=== PATIENT | male | born 1970 ===

== ENCOUNTER 2024-09-05 01:58 | Emergency (ER) | payer OTHER, SELFPAY ==
--- NOTE | 2024-09-05 | ECG_ITS ---
Test Reason : epi gastric Blood Pressure : / mmHG Vent. Rate : 079 BPM Atrial Rate : 079 BPM P-R Int : 160 ms QRS Dur : 102 ms QT Int : 386 ms P-R-T Axes : 049 -37 011 degrees QTc Int : 442 ms Normal sinus rhythm Left axis deviation Moderate voltage criteria for LVH, may be normal variant ( R in aVL , Dorr product ) Abnormal ECG No previous ECGs available Referred By: Polo Bailey Electronically Signed By:Eric Saavedra
--- NOTE | ~2024-09-05 | CT_ITS ---
EXAMINATION: CT ABDOMEN AND PELVIS WITHOUT CONTRAST CLINICAL INFORMATION: Abdominal pain. COMPARISON: None available. TECHNIQUE: Multidetector volumetric imaging was performed from the superior aspect of the liver through the pubic symphysis. Sagittal and coronal reformatted images were obtained on the technologist's workstation. This CT examination was performed using dose optimization techniques as appropriate, variously including the following: *Automated exposure control *Adjustment of mA and/or kV according to patient size (this includes techniques or standardized protocols for targeted exams where dose is matched to indication/reason for exam; i.e. extremities or head) *Use of iterative reconstruction technique DLP: 713 mGy-cm FINDINGS: LUNG BASES: Minimal interstitial coarsening/scarring at the lung bases. LIVER, GALLBLADDER, AND BILIARY TREE: The liver is irregular in contour. No focal liver lesions are seen. There is no intrahepatic biliary duct dilatation. The gallbladder is unremarkable with no evidence of radiopaque gallstones, gallbladder wall thickening, or obvious pericholecystic inflammatory changes. PANCREAS: Unremarkable. SPLEEN: Unremarkable. ADRENAL GLANDS: Unremarkable. KIDNEYS AND URETERS: The kidneys are normal in size, shape, and attenuation. No hydronephrosis, hydroureter, or calculi seen. No perinephric stranding. There is a 1.8 cm low-density structure mid pole left likely small cyst. BLADDER: Unremarkable. GASTROINTESTINAL TRACT: There is retained stool throughout the colon. There are diverticula of the sigmoid colon without evidence for diverticulitis. There are prominent fluid-filled mid to distal distal small bowel loops. The appendix is visualized and is within normal limits. ABDOMINAL WALL: No significant hernia is appreciated. LYMPH NODES: Normal. VASCULAR: There is atherosclerotic plaque of the abdominal aorta and proximal branches. There is recanalization of umbilical vein. PELVIC VISCERA: Unremarkable. OSSEOUS STRUCTURES: Unremarkable. CT/CT abdomen pelvis wo IV con IMPRESSION: 1. Prominent fluid-filled mid to distal small bowel loops. This may be seen with a mild enteritis. 2. Diverticulosis without evidence of diverticulitis. 3. Cirrhotic appearance of the liver. Recanalization of the umbilical vein. 4. Atherosclerotic plaque of the abdominal aorta and proximal branches. 5. 1.8 cm low-density structure mid pole left kidney likely small cyst. Fleischner guidelines were followed. Electronically signed by: Twin Christian MD 09/05/2024 05:29 AM EST [facility]
[2024-09-05 02:06] VITALS: BP 146/90; PULSE 76; O2SAT 97
[2024-09-05 02:17] VITALS: BP 158/84; PULSE 75; RESP 16; TEMP 36.6; O2SAT 95
--- NOTE | 2024-09-05 02:37 | ED.ABDPAIN ---
HPI - Abdominal Pain General Chief Complaint: Abdominal Pain Stated Complaint: Upper ABD Pain Time Seen by Provider: 09/05/24 02:10 Source: patient Mode of arrival: EMS Limitations: no limitations History of Present Illness ED Provider: baltazar ENRIQUE narrative: Patient's history of alcohol use with chronic liver disease came from [facility] for lower abdominal pain with nausea vomiting no bleeding no history of diverticulitis had a bowel movement prior to arrival Related Data Previous Rx's ?Medication ?Instructions ?Recorded ondansetron 4 mg disintegrating 4 mg PO Q6-8H PRN nausea and 09/05/24 tablet vomiting #7 tabs Allergies Allergy/AdvReac Type Severity Reaction Status Date / Time No Known Allergies Allergy Verified 09/05/24 02:31 Review of Systems Review of Systems Yes all other systems are reviewed and are negative [facility] Social History Social History Alcohol intake: current Alcohol intake frequency: a few times a week Alcohol type: beer and hard liquor Smoked in Last 30 Days: No Use of substances other than those prescribed or required for medical reasons: No Physical Exam ED Vital Signs: Vital Signs - 24 hr 09/05/24 02:17 09/05/24 04:11 09/05/24 06:01 Temperature 97.8 F 98.4 F 98.0 F Pulse Rate 75 76 77 Respiratory Rate 16 16 16 Blood Pressure 158/84 H 140/60 H 130/64 Pulse Oximetry 95 97 97 Oxygen Delivery Method Room Air Room Air Room Air BMI result Body Mass Index 30.0 Appearance: Alert. Oriented X3. No acute distress. Eyes: No pallor or icterus ENT: Pharynx normal. Oral Mucosa moist Neck: Normal inspection. Neck supple. CVS: Normal heart rate and rhythm. Pulses normal. Respiratory: No respiratory distress. Equal air entry bilateral, no wheezing/rales/rhonchi Abdomen: Soft and diffuse tenderness lower abdomen no rebound tenderness Bowel sounds are present, no mass palpable, no CVA tenderness Skin: Skin warm and dry. Normal skin color. Normal skin turgor. Extremities: No lower extremity edema. No calf tenderness Neuro: Oriented X 3. No motor deficit. No sensory deficit.No cerebellar signs , cranial nerves II-XII intact Medical Decision Making Medical Decision Making [facility] Narrative: Patient had 1 loose bowel in the ER feeling much better now CT scan negative for acute likely gastroenteritis [facility] is taking p.o. fluids in the ER feeling much better discharge patient Differential Diagnosis Differential Diagnoses: The differential diagnosis associated with the presentation includes Enteritis/SBO/diverticulitis Lab Data MDM Lab Attestation statement: I reviewed the patient's lab results. 09/05/24 02:47 09/05/24 02:47 Labs: Lab Results 09/05/24 09/05/24 Range/Units 02:47 05:36 WBC 6.5 (4.8-10.8) X10*3/uL RBC 3.98 L (4.60-5.80) X10*6/uL Hgb 13.0 L (14.0-18.0) g/dl Hct 37.8 L (42.0-52.0) % MCV 95.0 (80.0-98.0) fL MCH 32.7 (27.0-33.0) pg MCHC 34.4 (31.0-36.0) g/dl RDW 15.1 (11.0-16.0) % Plt Count 140 L (160-400) X10*3/uL MPV 9.8 (9.4-12.4) fL Immature Gran % (Auto) 0.3 (0.0-0.4) % Neut % (Auto) 57.8 (45-73) % Lymph % (Auto) 19.5 L (20-40) % [place] % (Auto) 18.7 H (2-11) % Eos % (Auto) 2.0 (0-4) % Baso % (Auto) 1.7 (0-2) % Lymph # (Auto) 1.3 (1.2-4.9) X10*3/uL [place] # (Auto) 1.2 (0.1-1.2) X10*3/uL Eos # (Auto) 0.1 (0.0-0.4) X10*3/uL Baso # (Auto) 0.1 (0.0-0.2) X10*3/uL Abs Immat Gran (auto) 0.02 (0.00-0.03) X10*3/uL Absolute Neuts (auto) 3.8 (2.0-8.3) x10*3/uL Absolute Nucleated RBC 0.000 (0.0-0.012) X10*3/uL Nucleated RBC % (auto) 0.0 (0.0-0.2) /100WBC PT 13.0 H (10.9-12.4) SEC INR 1.1 (0.9-1.1) Sodium 140 (135-145) mmol/L Potassium 4.0 (3.3-5.1) mmol/L Chloride 102 (96-108) mmol/L Carbon Dioxide 26 (22-29) mmol/L Anion Gap 16 (12-20) BUN 14 (9-16) mg/dL Creatinine 0.84 (0.5-1.4) mg/dL Estim Creat Clear Calc 97.8 Estimated GFR > 60 Random Glucose 142 H (60-115) mg/dL Calcium 10.0 (8.4-10.2) mg/dL Magnesium 1.7 (1.6-2.6) mg/dL Total Bilirubin 0.7 (0.0-1.0) mg/dL AST 53 H (5-37) U/L ALT 55 H (0-40) U/L Alkaline Phosphatase 88 (39-117) U/L Total Protein 7.6 (6.5-8.0) g/dL Albumin 4.3 (3.5-5.0) g/dL Lipase 111 H (8-78) U/L Urine Color Yellow Urine Appearance Clear Urine pH 6.5 (5.0-9.0) Ur Specific [place] 1.020 (1.005-1.025) Urine Protein Negative (Neg-Trace) mg/dL Urine Glucose (UA) Negative (Negative) mg/dL Urine Ketones Trace (Negative) mg/dL Urine Blood Negative (Negative) Urine Nitrite Negative (Negative) Ur Leukocyte Esterase Trace H (Negative) Urine RBC 0-2 (0-2) /HPF Urine WBC 0-5 (0-5) /HPF Ur Squamous Epith Cells 0-2 (0-2) /HPF Urine Bacteria None Seen (None Seen) Hyaline Casts 0-2 (0-2) /LPF Ethyl Alcohol < 10 mg/dL Independent Interpretation I performed an independent interpretation of an: CT Scan Radiology Impression Discussion of test interpretation with radiology: I have reviewed the radiologist's reading. Radiologist Impression: [address] [address] [address] Scan Report Signed Patient: Dc Warner MR#: [id number] : 1970 Acct:[id number] Age/Sex: 54 / M ADM Date: 09/05/24 Loc: HO.ED Attending Dr: Ordering Physician: Polo Bailey MD Date of Service: 09/05/24 Procedure(s): CT abdomen pelvis wo IV con Accession Number(s): [id number] cc: Jay Roland; Polo Bailey MD~ EXAMINATION: CT ABDOMEN AND PELVIS WITHOUT CONTRAST CLINICAL INFORMATION: Abdominal pain. COMPARISON: None available. TECHNIQUE: Multidetector volumetric imaging was performed from the superior aspect of the liver through the pubic symphysis. Sagittal and coronal reformatted images were obtained on the technologist's workstation. This CT examination was performed using dose optimization techniques as appropriate, variously including the following: *Automated exposure control *Adjustment of mA and/or kV according to patient size (this includes techniques or standardized protocols for targeted exams where dose is matched to indication/reason for exam; i.e. extremities or head) *Use of iterative reconstruction technique DLP: 713 mGy-cm FINDINGS: LUNG BASES: Minimal interstitial coarsening/scarring at the lung bases. LIVER, GALLBLADDER, AND BILIARY TREE: The liver is irregular in contour. No focal liver lesions are seen. There is no intrahepatic biliary duct dilatation. The gallbladder is unremarkable with no evidence of radiopaque gallstones, gallbladder wall thickening, or obvious pericholecystic inflammatory changes. PANCREAS: Unremarkable. SPLEEN: Unremarkable. ADRENAL GLANDS: Unremarkable. KIDNEYS AND URETERS: The kidneys are normal in size, shape, and attenuation. No hydronephrosis, hydroureter, or calculi seen. No perinephric stranding. There is a 1.8 cm low-density structure mid pole left likely small cyst. BLADDER: Unremarkable. GASTROINTESTINAL TRACT: There is retained stool throughout the colon. There are diverticula of the sigmoid colon without evidence for diverticulitis. There are prominent fluid-filled mid to distal distal small bowel loops. The appendix is visualized and is within normal limits. ABDOMINAL WALL: No significant hernia is appreciated. LYMPH NODES: Normal. VASCULAR: There is atherosclerotic plaque of the abdominal aorta and proximal branches. There is recanalization of umbilical vein. PELVIC VISCERA: Unremarkable. OSSEOUS STRUCTURES: Unremarkable. CT/CT abdomen pelvis wo IV con IMPRESSION: 1. Prominent fluid-filled mid to distal small bowel loops. This may be seen with a mild enteritis. 2. Diverticulosis without evidence of diverticulitis. 3. Cirrhotic appearance of the liver. Recanalization of the umbilical vein. 4. Atherosclerotic plaque of the abdominal aorta and proximal branches. 5. 1.8 cm low-density structure mid pole left kidney likely small cyst. Fleischner guidelines were followed. Electronically signed by: Twin Christian MD 09/05/2024 05:29 AM [facility] Medications Administered Discontinued Medications Generic Name Dose Route Start Last Admin Trade Name Freq PRN Reason Stop Dose Admin Sodium Chloride 1,000 mls @ 999 mls/hr 09/05/24 02:43 09/05/24 04:05 Ns IV 09/05/24 03:43 Infused .Q1H1M ONE Infusion Morphine Sulfate 4 mg 09/05/24 02:43 09/05/24 02:54 Morphine Sulfate 4 Mg/Ml Cartridge IVPUSH 09/05/24 02:44 4 mg ONCE ONE Administration Protocol Ondansetron HCl 4 mg 09/05/24 02:43 09/05/24 02:53 Ondansetron Hcl 4 Mg/2 Ml Vial IVPUSH 09/05/24 02:44 4 mg ONCE ONE Administration Discharge Plan Discharge Clinical Impression: Gastroenteritis Patient Disposition: Xfer [facility] Transfer Details: Patient's CT scan showed fluid in the bowels likely enteritis patient had a loose bowel in the ER feeling much better at this time Instructions: Gastroenteritis (ED) Additional Instructions: Drink plenty of fluids Medicine for nausea as prescribed Prescriptions: New ondansetron 4 mg tablet,disintegrating 4 mg PO Q6-8H PRN (Reason: nausea and vomiting) Qty: 7 0RF
[2024-09-05 02:51] LABS: MANUAL DIFF FLAG NO
[2024-09-05] MEDS: ondansetron HCL 4 MG/2 ML VIAL IVPUSH (02:53)
[2024-09-05] MEDS: Morphine Sulfate 4 MG/ML CARTRIDGE IVPUSH (02:54)
[2024-09-05 02:55] LABS: Basophils Absolute Auto 0.1 X10*3/uL (0.0-0.2); Basophils Percent Auto 1.7 % (0-2); Eosinophils Absolute Auto 0.1 X10*3/uL (0.0-0.4); Hematocrit 37.8 % (42.0-52.0); Imm Gran Abs Auto 0.02 X10*3/uL (0.00-0.03); Imm Gran Pct Auto 0.3 % (0.0-0.4); Lymphocytes Absolute Auto 1.3 X10*3/uL (1.2-4.9); Lymphocytes Percent Auto 19.5 % (20-40); Mean Corpuscular HGB Conc 34.4 g/dl (31.0-36.0); Mean Corpuscular Hemoglobin 32.7 pg (27.0-33.0); Mean Platelet Volume 9.8 fL (9.4-12.4); Monocytes Absolute Auto 1.2 X10*3/uL (0.1-1.2); Monocytes Percent Auto 18.7 % (2-11); Neutrophils Absolute Auto 3.8 x10*3/uL (2.0-8.3); Neutrophils Percent Auto 57.8 % (45-73); Platelet Count 140 X10*3/uL (160-400); Red Blood Count 3.98 X10*6/uL (4.60-5.80); Red Cell Distribution Width 15.1 % (11.0-16.0); White Blood Count 6.5 X10*3/uL (4.8-10.8)
[2024-09-05] MEDS: 0.9 % Sodium Chloride 1,000 ML 999 ML IV (02:55)
[2024-09-05 03:00] LABS: INTERNATIONAL NORM RATIO 1.1 (0.9-1.1)
[2024-09-05 03:14] LABS: Alanine Aminotransferase 55 U/L (0-40); Albumin Level 4.3 g/dL (3.5-5.0); Alkaline Phosphatase 88 U/L (39-117); Anion Gap 16 (12-20); Aspartate Amino Transferase 53 U/L (5-37); Bilirubin Total 0.7 mg/dL (0.0-1.0); Blood Urea Nitrogen 14 mg/dL (9-16); Carbon Dioxide 26 mmol/L (22-29); Chloride 102 mmol/L (96-108); Creatinine Clr Calc Pharmacy 97.8; Estimated Glomerular Filt Rate > 60; Ethanol < 10 mg/dL; Glucose Random 142 mg/dL (60-115); Lipase 111 U/L (8-78); Magnesium 1.7 mg/dL (1.6-2.6); Sodium 140 mmol/L (135-145); Total Protein 7.6 g/dL (6.5-8.0)
[2024-09-05 04:11] VITALS: BP 140/60; PULSE 76; RESP 16; TEMP 36.9; O2SAT 97
[2024-09-05 05:42] LABS: Appearance Urine Clear; Color Urine Yellow; Glucose Urine UA Negative (Negative); Leukocyte Esterase Urine Trace (Negative); Nitrite Urine Negative (Negative); PH 6.5 (5.0-9.0); UMIC TRIGGER UACC YES; Urine Blood Negative (Negative); Urine Ketones Trace mg/dL (Negative); Urine Protein Negative (Neg-Trace)
[2024-09-05 05:45] LABS: Bacteria Urine None Seen (None Seen); Hyaline Casts Urine 0-2 /LPF (0-2); RBC Urine 0-2 /HPF (0-2); Squamous Epithelial Cell Urine 0-2 /HPF (0-2); WBC Urine 0-5 /HPF (0-5)
[2024-09-05 06:01] VITALS: BP 130/64; PULSE 77; RESP 16; TEMP 36.7; O2SAT 97
--- NOTE | 2024-09-05 07:45 | MHC.EDTECH ---
Called [facility] to schedule transfer back to [facility]. Spoke to Lorin. Transfer scheduled for 8:30AM
--- NOTE | 2024-09-05 08:01 | PC.NURSE ---
this nurse took over care for patient at 7am, 1:1 sitter at bedside, pt currently sleeping awaiting for ride back to [facility]. vitals previously stable, rr equal/non labored, will continue plan of care
[2024-09-05 08:07] VITALS: BP 122/62; PULSE 69; RESP 14; TEMP 36.9; O2SAT 96
[2024-09-05 08:53] VITALS: BP 121/66; PULSE 71; RESP 16; TEMP 36.9; O2SAT 96
== END 2024-09-05 09:21 ==
PROVIDERS: Emergency Provider Internal Medicine; PCP Internal Medicine
DX: K52.9 Noninfective gastroenteritis and colitis, unspecified (principal); R10.2 Pelvic and perineal pain; R94.31 Abnormal electrocardiogram [ECG] [EKG]; R11.2 Nausea with vomiting, unspecified; Z79.899 Other long term (current) drug therapy
CPT/HCPCS: 36415; 74176; 80053; 80307; 81001; 83690; 83735; 85025; 85610; 93005; 96361; 96374; 96375; 99285; J2270; J2405

== ENCOUNTER → 2024-09-05 02:40 | Outpatient (BNV) | payer OTHER, SELFPAY | PROVIDERS: Emergency Provider Internal Medicine; PCP Internal Medicine; Visit Provider Internal Medicine Cardiovascular Disease | DX: R94.31 Abnormal electrocardiogram [ECG] [EKG] (principal) | CPT/HCPCS: 93010 ==